=== PATIENT | female | born 1930 | race Hispanic/Latino ===

== ENCOUNTER 2018-07-30 06:42 | Day surgery (SDC) | payer MEDICARE ==
[2018-07-26 13:08] VITALS: BMI 24.5
[2018-07-30 07:10] LABS: BASO # 0.03 K/mm3 (0.0-2.0); BASO % 0.3 % (0.0-3.0); EOS # 0.1 (0.0-0.7); EOS % 1.5 % (1.5-5.0); GRAN # 5.53 (1.4-6.5); GRAN % 63.6 % (50.0-68.0); HEMOGLOBIN 13.7 g/dL (12.0-16.0); LYMPH # 2.3 (1.2-3.4); LYMPH % 26.2 % (22.0-35.0); MEAN CELL VOLUME 85.9 fl (80.0-105.0); MEAN CORPUSCULAR HEMOGLOBIN 30.6 pg (25.0-35.0); MEAN CORPUSCULAR HGB CONC 35.6 g/dl (31.0-37.0); MEAN PLATELET VOLUME 9.4 fl (7.0-11.0); MONO # 0.7 (0.1-0.6); MONO % 8.4 % (1.0-6.0); RBC 4.48 10^6/uL (3.5-6.1); RED CELL DISTRIBUTION WIDTH 12.4 % (11.5-14.5); WHITE BLOOD COUNT 8.7 10^3/ul (4.5-11.0)
[2018-07-30 07:15] LABS: INR 1.02; PARTIAL THROMBOPLASTIN TIME 29.1 Seconds (25.1-36.5); PROTHROMBIN TIME 11.7 SECONDS (9.4-12.5)
[2018-07-30 07:26] LABS: BLOOD UREA NITROGEN 19 mg/dL (7-21); CALCIUM 9.7 mg/dL (8.4-10.5); GFR NON-AFRICAN AMERICAN > 60; HDL CHOLESTEROL 40 mg/dL (29-60)
[2018-07-30 07:37] LABS: LDL CHOLESTEROL 78 mg/dL (0-129)
[2018-07-30] MEDS ORDERED: Iohexol 350mgl/ml 50 ML ONE (08:23)
[2018-07-30] MEDS ORDERED: Lidocaine PF 2% (5 ml) Inj (For Cardiac Arrhy) ONE (08:23)
[2018-07-30] MEDS ORDERED: Iodixanol 320 MG/ML 200 ML BOTTLE IV ONE (08:23)
[2018-07-30] MEDS ORDERED: Midazolam 2 MG/2 ML VIAL ONE ×2 (08:47→08:57)
[2018-07-30] MEDS ORDERED: Eptifibatide 20 mg/10mL Inj IVP ONE (09:11)
[2018-07-30] MEDS ORDERED: Sodium Chloride 0.9% 1,000 ML IV SCH (09:45)
--- NOTE | 2018-07-30 10:00 | CARDCATH ---
PROCEDURE DATE: 07/30/2018 CARDIAC CATHETERIZATION AND PTCA HISTORY: The patient is an 88-year-old woman who presents with angina. A stress test is abnormal. The patient suffers from a myocardial infarction in the past and is status post PTCA and stent of three lesions in the LAD more than 10 years ago. Because of her symptoms as well as her abnormal stress test, cardiac catheterization was recommended. PROCEDURE: Left heart catheterization with coronary arteriography and left ventriculogram followed by PTCA and stent of an RCA with a drug-eluting stent. The right femoral artery was cannulated with a 6-Dutch sheath. There were no complications. I performed moderate sedation, which included the presence of an independent trained observer that assisted in monitoring the patient's level of consciousness and physiologic status. After administration of Versed and fentanyl, my intra-service time was 30 minutes. The findings on catheterization revealed a left ventricle that contracted normally. Estimated ejection fraction of 60%. Her coronary anatomy revealed a right dominant circulation. The RCA was a dominant vessel with diffuse atherosclerosis throughout its tree. From the proximal portion of the RCA extending into the mid RCA, there is a long eccentric 70-80% stenoses noted. The left main artery was unremarkable. The LAD revealed diffuse atherosclerosis with multiple patent stents throughout. The diagonal vessels revealed disease in the ostium of diagonal 1 and 2 of 80-90%. These diagonal lesions are chronic. The circumflex artery and obtuse marginal branches revealed diffuse atherosclerosis without critical lesions. The patient was started on intravenous Angiomax. Under fluoroscopic guide, the guiding catheter was placed in the ostium of the RCA and 0.014 ATW wire was used to cross the critical lesion. A 3.5 x 18 mm drug-eluting stent was placed and deployed at 60 atmospheres of pressure. Repeat coronary arteriography after balloon removal revealed an excellent result with no residual stenosis and JOANA III flow. Angio-Seal was used to close the femoral artery site. The patient tolerated the procedure well. In summary, the procedure was successful PTCA and stent of a long critical lesion in the proximal to mid RCA. Cardiac catheterization reveals new RCA lesion as well as patent stents in the LAD, which was placed more than 10 years ago. The lesions in the diagonal vessels are chronic. LV function is normal. Given these findings, the patient will need to remain on aspirin indefinitely and Plavix for at least a year and undergo a strict cardiac risk reduction program. Vijay Alicea MD [facility] # [id number]
--- NOTE | 2018-07-30 11:54 | HP ---
HISTORY OF PRESENT ILLNESS: I was called to the labor arbitrator hearing office by Dr. Alicea to admit her to my service, status post cardiac catheterization and stent placement. She had an abnormal stress test. She has a history of having three stents placed and all three vessels are still opened with the fourth vessel, a coronary vessel was blocked and it was a long blockage, but he put a stent in and he thinks he was very good, it was 70% to 80% blocked and now she has four stents in and each to be working well. She is comfortable, lying on the gurney. I discussed this with the family and Dr. Alicea. She is an 88-year-old very active female who presented with an abnormal stress test, had cardiac cath and now she is resting comfortably on the gurney. No chest pain, shortness of breath or abdominal pain at this time. She is alert and in good spirits. Family is present. She wears hearing aids in both ears. She wears glasses. She is alert and oriented and very appropriate. Osteoporosis and arthritis, she has. No depression or anxiety. She understands what is going on. PAST MEDICAL HISTORY: She has a past medical history of CAD, high cholesterol, hypertension, arthritis, osteoporosis. She has fallen down five stairs 5 years ago resulting concussion brain bleed, fractured nose, vertigo, ulcerative colitis, sinus problems that was 5 years ago. She had PTCA with three stents already, colonoscopy, EGD, bilateral cataract surgery, left inguinal hernia repair in the past. She has had nauseousness with anesthesia in the past. FAMILY HISTORY: There is an NM with her mother. There is peripheral edema. REVIEW OF SYSTEMS: No apparent vision or hearing changes, just old. No sore throat. No chest pain. No shortness of breath or abdominal pain. No cough, no palpitations. She does have some constipation and diarrhea. No extremity weakness. She is usually up sweeping the floors and very active at home, family says. PHYSICAL EXAMINATION: VITAL SIGNS: She has a 98.2 temp, 65 pulse, 18 respiratory rate, 98% O2 sat on room air. HEENT: Head is atraumatic, normocephalic. Throat is moist. NECK: Supple. HEART: Regular rate. LUNGS: Decreased breath sounds but clear. ABDOMEN: Soft, nontender. Positive bowel sounds. EXTREMITIES: Have no edema at this time. SKIN: What I could tell is, intact. What I could tell is, no apparent rashes or ulcers. PSYCHIATRIC: She is alert and oriented x3. LYMPHATICS: Thyroid midline. No palpable lymphadenopathy. ASSESSMENT AND PLAN: She lays down flat on the gurney. She has to lay down flat for 6 hours status post cath. She has coronary artery disease. She had a fourth stent placed. Hypertension, gastroesophageal reflux disease, high cholesterol. Discussed with Dr. Alicea and also with the family and to be baby-sat overnight. Hopefully tomorrow, she will do well and we could discharge her tomorrow morning. Kushal Westbrook DO
[2018-07-31 06:24] VITALS: O2SAT 95
[2018-07-31 07:18] LABS: BASO # 0.04 K/mm3 (0.0-2.0); BASO % 0.5 % (0.0-3.0); EOS # 0.1 (0.0-0.7); EOS % 1.3 % (1.5-5.0); GRAN # 5.63 (1.4-6.5); GRAN % 74.8 % (50.0-68.0); HEMOGLOBIN 13.3 g/dL (12.0-16.0); LYMPH # 0.9 (1.2-3.4); LYMPH % 12.5 % (22.0-35.0); MEAN CELL VOLUME 85.7 fl (80.0-105.0); MEAN CORPUSCULAR HEMOGLOBIN 29.2 pg (25.0-35.0); MEAN PLATELET VOLUME 9.5 fl (7.0-11.0); MONO # 0.8 (0.1-0.6); MONO % 10.9 % (1.0-6.0); RBC 4.56 10^6/uL (3.5-6.1); RED CELL DISTRIBUTION WIDTH 12.5 % (11.5-14.5); WHITE BLOOD COUNT 7.5 10^3/ul (4.5-11.0)
[2018-07-31 07:40] LABS: ALB/GLOB RATIO 1.3 (1.1-1.8); ALT/SGPT 24 U/L (7-56); AST/SGOT 18 U/L (14-36); BLOOD UREA NITROGEN 14 mg/dL (7-21); CALCIUM 9.6 mg/dL (8.4-10.5); GFR NON-AFRICAN AMERICAN > 60
[2018-07-31 12:02] VITALS: BP 97/57; PULSE 82; RESP 19; TEMP 97.9
--- NOTE | 2018-07-31 13:35 | PN ---
DATE: 07/31/2018 CARDIOLOGY FOLLOWUP SUBJECTIVE: The patient is ambulating without symptoms. PHYSICAL EXAMINATION: VITAL SIGNS: Blood pressure varies from 97 to 117, heart rate is in the 80s. NECK: Negative JVD. LUNGS: Without rales. HEART: Reveals S1, S2. EXTREMITIES: Without edema. LABORATORY DATA: Hemoglobin is 13.3. BUN and creatinine are unremarkable. IMPRESSION: 1. Status post percutaneous transluminal coronary angioplasty and stent of right coronary artery with drug eluting stent. 2. The patient is stable from a cardiac perspective. The patient can be discharged today. PLAN: Given her blood pressure, we will need to decrease her antihypertensive medications. Vijay Alicea MD
--- NOTE | 2018-07-31 13:49 | CARD ---
APPROVED REPORT Date of service: 07/31/2018 EKG Measurement Heart [id number] <Conclusion> Normal sinus rhythm Left axis deviation Minimal voltage criteria for LVH, may be normal variant ST & T wave abnormality, consider lateral ischemia Abnormal ECG
--- NOTE | 2018-07-31 14:05 | CARD ---
APPROVED REPORT Date of service: 07/30/2018 EKG Measurement Heart [id number] <Conclusion> Normal sinus rhythm Left axis deviation ST & T wave abnormality, consider lateral ischemia Abnormal ECG
--- NOTE | 2018-08-01 04:16 | DS ---
HISTORY OF PRESENT ILLNESS: She had a cardiac cath yesterday with Dr. Alicea and did well. She was here for CAD, hypertension, GERD, high cholesterol. She is pleasant in bed. We discussed not doing much sweeping the house floor for the next week or two to rest her. She is on Amitiza, Avapro, aspirin, Pravachol, omeprazole and metoprolol. She will continue the same medications. PHYSICAL EXAMINATION: VITAL SIGNS: She has a 97.6 temp, 70 pulse, 117/67 blood pressure, 18 respiratory rate, 95% O2 sat on room air. HEENT: Head is atraumatic, normocephalic. HEART: Regular rate. LUNGS: Clear to auscultation. ABDOMEN: Soft, nontender with positive bowel sounds. EXTREMITIES: Have no edema. LABORATORY DATA: She has a 7.5 white count, 13.3 hemoglobin, 39.1 hematocrit with 188 platelets. She has a 134 sodium, potassium 4.2, BUN 14, creatinine 0.6, GFR is greater than 60, sugar is 98, calcium is 9.6, total bili is 1.4, AST is 18, ALT is 24, alk phos 91, total protein 7.1, albumin is 4, triglycerides are 160, cholesterol is 153, HDL is 40. ASSESSMENT AND PLAN: She is quite well. I believe that was the fourth stent placed. _ wide open as per Dr. Alicea and she will be discharged today after Dr. Alicea sees her. Kushal Westbrook DO MTDD
== END 2018-07-31 16:11 | disposition home or self-care (01) ==
LOC: CATH 06:42 → 2RSO 09:38 → CATH 07-31 16:11
PROVIDERS: ATTEND Internal Medicine Cardiovascular Disease
DX: I25.10 Atherosclerotic heart disease of native coronary artery without angina pectoris (principal); I10 Essential (primary) hypertension; E78.00 Pure hypercholesterolemia, unspecified; K21.9 Gastro-esophageal reflux disease without esophagitis; M81.0 Age-related osteoporosis without current pathological fracture; M19.90 Unspecified osteoarthritis, unspecified site; I25.2 Old myocardial infarction; Z95.5 Presence of coronary angioplasty implant and graft
CPT/HCPCS: 36415 ×2; 80048; 80053; 80061; 85025 ×2; 85027; 85610; 85730; 86850; 86900; 93005 ×2; 93458; 99152; 99153; C1760; C1769 ×2; C1874; C1887; C2629; C9600; J0583; J1327; J1644; J2250; J3010; J7030; Q9966; Q9967